=== PATIENT | female | born 1995 | race Caucasian/White ===

== ENCOUNTER 2022-04-22 04:10 | Emergency (ER) | payer SELFPAY ==
[2022-04-22] MEDS ORDERED: Ibuprofen 200 MG TAB ONE (04:42)
[2022-04-22] MEDS ORDERED: Acetaminophen 500 MG TAB ONE (04:42)
[2022-04-22 04:46] LABS: Bilirubin Neg (Negative); Blood, Urine Negative (Negative); Clarity Cloudy (Clear); Glucose, Urine (Dipstick) Normal (Negative); Ketone, Urine 150 mg/dL (Negative); Leukocyte 500 (Negative); Nitrite Negative (Negative); Protein, Urine (Dipstick) 15 mg/dl (Neg-Trace)
[2022-04-22 04:52] LABS: Bacteria/HPF 2+ HPF (None Seen); Mucous/LPF 2+ LPF (<2+); RBC/HPF 0-3 HPF (0-3)
[2022-04-22 04:53] LABS: Pregnancy Test - Urine (BHCG) Negative (Negative); Pregu Control Background? CLEAR/WHITE (CLR/WHITE); Pregu Control Bar Appear? YES (CONTROL BAR)
[2022-04-22 05:40] LABS: Hemoglobin 12.6 g/dL (12.0-15.5); Mean Corpuscular HGB CONC 33.7 g/dL (32.0-36.0); Mean Corpuscular Hemoglobin 28.8 pg (27.0-33.0); Mean Corpuscular Volume 85.6 fl (81.6-98.3); Mean Platelet Volume 10.4 fl (7.4-10.4); Platelet Count 285 10x3/uL (150-450); RBC Distribution Width 13.2 % (11.5-14.5); Red Blood Cell (RBC) Count 4.37 10x6/uL (3.90-5.03)
[2022-04-22 05:47] LABS: MDiff Complete? YES
[2022-04-22 05:50] LABS: ALT (SGPT) 11 U/L (8-55); AST (SGOT) 13 U/L (5-34); Albumin 3.6 g/dL (3.5-5.0); Alkaline Phosphatase 64 U/L (40-110); Anion Gap 14 mmol/L (10-20); BUN (Urea Nitrogen) 10 mg/dL (7.0-18.7); Bilirubin, Total 0.4 mg/dL (0.2-1.2); Calc. Creatinine Clearance 0 mL/min (70-130); Calcium 8.6 mg/dL (7.8-10.44); Carbon Dioxide 22 mmol/L (22-29); Chloride 106 mmol/L (98-107); Estimated GFR 106; Glucose 117 mg/dL (70-105); Potassium 3.6 mmol/L (3.5-5.1); Protein, Total 7.6 g/dL (6.0-8.3); Sodium 138 mmol/L (136-145)
[2022-04-22 06:09] LABS: Band 8 % (5-11); Eosinophils 1 % (0-10); Neutrophil 76 % (42-75)
[2022-04-22] MEDS ORDERED: cefTRIAXone\\ROCEPHIN 2 GM VIAL ONE (06:09)
[2022-04-22 06:10] LABS: Lymphocytes 10 % (21-51); Monocytes 5 % (0-10); Platelet Morphology Comment Appears Adequate
[2022-04-22 06:11] LABS: RBC Morphology Normal
== END 2022-04-22 07:25 | disposition home or self-care (01) ==
LOC: CSHERS 04:10
DX: N10 Acute pyelonephritis (principal); R00.0 Tachycardia, unspecified; J02.9 Acute pharyngitis, unspecified
CPT/HCPCS: 36415; 80053; 81003; 81015; 81025; 83605; 85025; 87040; 87086; 93005; 96361; 96365; J0696